=== PATIENT | male | born 1995 | race Caucasian/White ===

== ENCOUNTER 2020-12-21 08:34 | Emergency (ER) | payer SELFPAY ==
[2020-12-21 08:38] VITALS: BP 130/77; PULSE 78; TEMP 37; O2SAT 99
--- NOTE | 2020-12-21 09:00 | ED.GENADUL_ITS ---
Discharge Plan Disposition Patient Disposition: HOME Condition: Stable Discharge Details Clinical Impression: Neck pain Primary Care Provider: Rajan Medina ED Provider: Brenda Gallardo Home Meds and New Rx's Prescriptions: New cyclobenzaprine 10 mg tablet 10 mg PO TID PRN (Reason: muscle spasm) Qty: 9 RF: 0 prednisone 20 mg tablet 40 mg PO DAILY Qty: 8 RF: 0 Continued fluoxetine 40 mg capsule 40 mg PO DAILY Qty: 90 RF: 1 fluoxetine 20 mg capsule 20 mg PO DAILY Qty: 90 RF: 1 Discharge Instructions Instructions: Neck Pain (ED) Additional Instructions: Please return immediately to the emergency department if you develop any new or worsening symptoms, if your condition does not improve as expected, or if you become otherwise concerned. It is extremely important that you call soon as possible to make an appointment to be seen in follow-up for this visit by your primary care doctor. Referrals: Rajan Medina DO [Primary Care Provider] - Medical Decision Making Kyle Moreno is a 25 y/o man with history of depression, ADD who presented to emergency department with lower posterior neck pain that began when patient was trying to remove his some car seat. There was no impact or other trauma. On exam there is no cervical or thoracic spine tenderness to palpation, there is tenderness that reproduces pain in the left paraspinals at the level of C7/T1. No other paraspinal tenderness to palpation. Full range of motion of neck. Full range of motion of upper extremities, motor 5 out of 5 bilateral upper extremities. Concern for muscle spasm/strain. Exam/history at this time is not consistent with acute bony pathology, infectious etiology, acute coronary syndrome, acute aortic pathology, pulmonary embolism, other acute emergent life- threatening process. Plan for Lidoderm patch, p.o. steroids, p.o. cyclobenzaprine, outpatient follow-up. Patient is not driving and has a ride home, will administer first dose of steroids/cyclobenzaprine here. Imaging is not indicated at this time. I had a lengthy discussion with Patient regarding return to emergency department precautions, home care, safe use of cyclobenzaprine, and importance of outpatient follow-up. Pt verbalizes understanding of the plan and is amenable. Patient discharged to home with clear plan for outpatient follow-up. All questions were answered. Disposition decision was made weighing the risks and benefits of hospitalization versus outpatient treatment, the risk for further decompensation, and the patient's wishes. Medical Records Medical records reviewed: Yes I reviewed the patient's medical records. HPI General Mode of arrival: ambulatory . Date/Time Provider Initiated Documentation: 12/21/20 08:41 . Limitations to Documentation: no limitations . Information obtained by: patient, RN notes reviewed and old records reviewed . HPI Narrative: Kyle Moreno is a 25-year-old man without reported history of major medical problems who presents emergency department with chief complaint neck pain. Patient reports that yesterday he was removing his son car seat from the car when he pulled on the seat and fell pain at the lower aspect of his posterior neck. Patient reports that neck pain has persisted into today, unchanged. Patient reports the pain is worse with turning his head in either direction. He denies any other pain or any recent illness, no fever, cough, shortness of breath, vomiting, diarrhea, rash. He denies numbness, weakness. Patient reports that he has not had similar pain in the past. Has been able to go about his activities as usual, but states that he has to move slower to avoid spasm pain at the site of injury at the base of his neck and the back. He denies any radiation of the pain, able to range upper extremities without issue. He reports that pain is mild. Related Data Home Medications Medication Instructions Recorded Confirmed fluoxetine 20 mg capsule 20 mg PO DAILY #90 cap 07/09/20 12/21/20 fluoxetine 40 mg capsule 40 mg PO DAILY #90 cap 07/09/20 12/21/20 cyclobenzaprine 10 mg PO TID PRN #9 tab 12/21/20 prednisone 40 mg PO DAILY #8 tab 12/21/20 Previous Rx's Medication Instructions Recorded fluoxetine 20 mg capsule 20 mg PO DAILY #90 cap 07/09/20 fluoxetine 40 mg capsule 40 mg PO DAILY #90 cap 07/09/20 cyclobenzaprine 10 mg PO TID PRN #9 tab 12/21/20 prednisone 40 mg PO DAILY #8 tab 12/21/20 Allergies Allergy/AdvReac Type Severity Reaction Status Date / Time No Known Allergies Allergy Verified 12/21/20 08:45 General Stated Complaint: Nk/Back Pain ELISA: 4 Review of Systems Narrative: Constitutional: denies fevers Eyes: denies eye pain ENT: denies ear pain, dental pain, sore throat Cardiovascular: denies chest pain Respiratory: denies SOB, cough GI: denies abdominal pain, vomiting, diarrhea : denies flank pain MSK: denies back pain, arthralgias, myalgias, reports neck pain Skin: denies rash Neuro: denies headaches, numbness, weakness PFSH Medical History Family history of colon cancer Grandfather diagnosed in his 50s Impacted teeth with abnormal position Major depressive disorder, recurrent episode Tobacco use Family History (Updated 10/03/19 @ 13:38 by Kanika Albert RN) Mother No problems noted. Father No problems noted. Brother No problems noted. Sister No problems noted. Sister No problems noted. Sister No problems noted. Sister No problems noted. Sister No problems noted. Sister No problems noted. Sister No problems noted. Maternal Grandfather Colon cancer Maternal Grandmother , Breast Cancer Depression Son No problems noted. Paternal Grandmother Depression Other Family history of breast cancer Family history of malignant neoplasm of intestine Social History Smoking/Tobacco Use Status: Current every day Tobacco Type: cigarettes Tobacco: How many years used: 10 Quit status: considering quitting Second Hand Exposure: No Smoking risk assessment performed?: Yes Alcohol Intake: current Alcohol Intake frequency: 0-2 drinks per day Alcohol type: other Drug use: Daily Substance use type: marijuana Adopted: No Caregiver/Support person: No Foster care: No Household members: significant other and children Housing: house Number of Children: 1 Communication Needs: Corrective Lenses Education Level: high school Do you need help understanding health information?: Never current occupation: [employer] Pets and animals: Yes Pets and animals: cat(s), dog(s), horse(s) and farm animals Sexually active: Yes Do you think of yourself as: straight/heterosexual Current gender identity: male What is your relationship status?: living with partner How often do you talk on the phone with friends or family?: once per week How often do you get together with friends or relatives?: once per week How often do you attend adventist or mormonism services?: 1-3 times per year Do you belong to any clubs or organized social groups?: no Panel score (0-1 are the most socially isolated patients): 1 What type of physical activity do you participate in: none and weight lifting Duration: > 90 minutes/day Frequency: 5-6 times per week Radha/Advent: Unknown Special radha needs: No Agree to transfusion: Yes Seatbelt use: sometimes Helmet use: Yes 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 No overlying skin changes. No other cervical or thoracic paraspinal tenderness palpation Resp: normal work of breathing, speaking in full sentences Cardio: normal rate, normal rhythm Back: normal inspection, no rash Skin: warm, dry, normal color, no rash Neuro: alert, not altered, grossly non-focal, normal tone, motor 5 out of 5 bilateral upper extremities Ext: no edema, full range of motion of upper extremities bilaterally Psych: normal mood, normal affect, normal behavior Course Vital Signs Vital signs: Vital Signs Temperature 37.0 C 12/21/20 08:38 Pulse 78 12/21/20 08:38 Blood Pressure 130/77 12/21/20 08:38 Pulse Oximetry 99 12/21/20 08:38 Temperature 37.0 C 12/21/20 08:38 Temperature Source Temporal Artery Scan 12/21/20 08:38 Pulse 78 12/21/20 08:38 Respiratory Effort Non-Labored 12/21/20 08:43 Blood Pressure 130/77 12/21/20 08:38 Blood Pressure Position Sitting 12/21/20 08:38 Pulse Oximetry 99 12/21/20 08:38 Oxygen Delivery Method Room Air 12/21/20 08:38 Oxygen Flow Rate 0 12/21/20 08:38 Pain Level 4 12/21/20 08:38
[2020-12-21] MEDS: Lidocaine 5% Patch 1 PATCH TP (09:19)
[2020-12-21] MEDS: predniSONE 20 MG TAB 40 MG PO (09:19)
[2020-12-21] MEDS: Cyclobenzaprine 10 MG TAB PO (09:19)
== END 2020-12-21 09:25 | disposition home or self-care (01) ==
PROVIDERS: Emergency Provider Student in an Organized Health Care Education/Training Program; PCP Family Medicine
DX: M54.2 Cervicalgia (principal); X50.9XXA Other and unspecified overexertion or strenuous movements or postures, initial encounter
CPT/HCPCS: 99283; J7512

== ENCOUNTER 2024-12-24 06:37 | Emergency (ER) | payer SELFPAY ==
[2024-12-24] VITALS (20 sets, daily range): BP systolic 107–135; BP diastolic 72–84; PULSE 48–73; RESP 9–20; TEMP 36; O2SAT 93–100
--- NOTE | 2024-12-24 06:30 | RT.EKG_ITS ---
APPROVED REPORT Exam: Resting ECG Reason for Exam: chest pain Patient Location: E HR:66 bpm ECG Measurements Heart Rate 66 AXIS MT 142 P 71 QRSd 82 QRS 81 QT 385 T 57 QTc 403 Conclusion Sinus rhythm...normal P axis, V-rate 60- 99 ST elev, probable normal early repol pattern...ST elevation, age<55 No Occlusion MA
--- NOTE | 2024-12-24 07:00 | DI.RAD_ITS ---
Exam(s) XR CHEST 2V PA LATERAL EXAM: XR CHEST 2V PA LATERAL CLINICAL HISTORY: Chest pain TECHNIQUE: 2D digital imaging was performed. Two views. COMPARISON: No exams were available for comparison FINDINGS: HEART: Normal size. Aorta: Not dilated. PULMONARY VASCULATURE: Normal. MEDIASTINUM: Unremarkable. LUNGS: Clear. PLEURAL SPACE: No pleural effusion or pneumothorax. BONE:Unremarkable for age. SOFT TISSUES: Unremarkable. IMPRESSION: No acute abnormality. DATA REPOSITORY: RADIATION DOSE DELIVERED:
--- NOTE | 2024-12-24 07:03 | W.ED.GENAD ---
Discharge Plan Disposition Patient Disposition: Home Discharge Details Clinical Impression: Chest pain, unspecified Primary Care Provider: Rajan Medina ED Provider: Bennie Gonzalez Home Meds and New Rx's Prescriptions: Continued fluoxetine 40 mg capsule 80 mg PO DAILY Qty: 180 3RF Discharge Instructions Additional Instructions: You are seen in the emergency department for your chest pain. Your blood work showed no sign of any damage to your heart. Your kidneys are working well. As we discussed if your pain returns if you pass out or if you have any other concerns please return to the emergency department. Otherwise please follow-up with your primary care provider. Discharge Data Discharge Date/Time-TO BE ENTERED AT DEPARTURE: 12/24/24 08:42 HPI General Date/Time Provider Initiated Documentation: 12/24/24 06:59. HPI Narrative: MDM This is an overall very well-appearing afebrile and not tachycardic 29-year-old male with chest pain for which patient will undergo troponin testing in the setting of his nonischemic ECG. ECG showing sinus rhythm at a rate of 66. Narrow complex. Intervals within normal limits. ST segment elevation in lead V3 upsloping V4 V5 consistent with early repolarization. No ST segment depressions. No T wave inversions. No prior for comparison. No acute injury pattern. Patient has not had any fevers to suggest pneumonia however will obtain chest x-ray. Patient does drink alcohol so pancreatitis is on the differential though patient has no epigastric pain. Will order a lipase. No pain out of proportion to suggest necrotizing soft tissue infection. I considered PE however the patient is PERC negative so I did not send a D-dimer. No rash to chest to suggest zoster. Patient has not been vomiting to suggest increased risk for esophageal rupture. Patient is neither tachycardic nor hypotensive to my suspicion is low for tamponade. Furthermore he has no significant pericardial effusion on POCUS. HEART SCORE Chest pain Diagnostic Protocol: [- History/Physical/Gestalt: Moderately Suspicious (+1)] [- EKG: Nonspecific repolarization (+1)] [-AGE: less than 45 (0)] [- RISK FACTORS: 1 - 2 risk factors (+1)] [-TROPONIN: <= normal limit (0)] - TOTAL SCORE: 3 - Risk Factors: DM, current or recent smoker, HTN, HLD, family hx of CAD, obesity - INTERPRETATION: With a total score of 3 or less, risk of major cardiac event within six weeks 1.7%, likely lower with two negative troponins. [I explained to the patient that the risk of subsequent major cardiac event within 1 month is not 0, however risk predicted to be less than 2%. Patient verbalized understanding, accepts this risk and shared and the decision for discharge with PCP follow-up for further evaluation and management. They understand to return to the ED immediately with any worsening symptoms, new symptoms or other concerns.] 8:27 AM Reassuring initial troponin. Comprehensive metabolic panel reassuring with no acute electrolyte nor LFT abnormalities. Reassuring normal lipase. CBC lacks anemia thrombocytopenia and leukocytosis. Chest x-ray on my preliminary read showing no acute cardiopulmonary process. I advised patient of his reassuring evaluation in the ED. We discussed that he should return to the ED if you develop recurrent chest pain if he passed out or if you have any other concerns. He understood his return indications and was discharged with an empiric trial of expectant outpatient management. HPI This is a male with no significant past medical history presenting with chest pain. This morning, while en route to work, the patient experienced a sudden onset of symptoms including cold sweats, dizziness, chest pain, numbness in his arms, and stiffness in his fingers. The chest pain was described as tightness and pressure in the middle of his chest, which did not radiate into his arms. However, the numbness seemed to originate from his back and extend into his arms. The patient felt anxious during the episode. His symptoms were alleviated by deep breathing, drinking water, and reclining in the car. The patient reports no history of high cholesterol, diabetes, or high blood pressure. He reports no recent vomiting, abdominal pain, or unusual rashes on his chest. He has no history of blood clots in his legs or lungs, is not experiencing calf pain, and has not undergone any recent surgeries. He is not currently taking any hormone medications. The patient is currently experiencing symptoms of a mild cold but reports no other health issues. A similar episode occurred approximately 2 weeks ago, which was attributed to a general illness affecting his family at the time. On that occasion, he recovered after resting at home. Patient endorses alcohol and tobacco use. Exam General: Well-appearing in no acute distress speaking in complete sentences. Head: Normocephalic, atraumatic. Eye: Extraocular eye movements intact. No conjunctival injection. No scleral icterus. Ear, nose, mouth, throat: Grossly normal inspection. Normal voice, handling secretions normally. Neck: Trachea midline. Cardiovascular: Well-perfused distal extremities. Regular rate and rhythm Respiratory: Nonlabored respiration. Clear lungs bilaterally. Gastrointestinal: Nondistended abdomen. Soft. Nontender. No rebound. No guarding. Musculoskeletal: No edema. Moving all 4 extremities spontaneously. Skin: Normal for age and race, grossly normal temperature and turgor. No acute rash. Neurologic: Alert and appropriate, no apparent acute deficits. Psychiatric: Mood and manner are appropriate. Grooming and personal hygiene are appropriate. Related Data Home Medications ?Medication ?Instructions ?Recorded ?Confirmed fluoxetine 40 mg capsule 80 mg (2 x 40 mg) PO DAILY #180 03/28/24 12/24/24 caps Previous Rx's ?Medication ?Instructions ?Recorded fluoxetine 40 mg capsule 80 mg (2 x 40 mg) PO DAILY #180 03/28/24 caps Allergies Allergy/AdvReac Type Severity Reaction Status Date / Time No Known Allergies Allergy Verified 12/24/24 06:44 General Stated Complaint: Chest Pain ELISA: 3 Course Vital Signs Vital signs: Vital Signs Temperature 36.0 C L 12/24/24 06:40 Pulse 70 12/24/24 06:40 Respiratory Rate 15 12/24/24 06:40 Blood Pressure 135/83 12/24/24 06:40 Pulse Oximetry 98 12/24/24 06:40 Temperature 36.0 C L 12/24/24 06:40 Temperature Source Tympanic 12/24/24 06:40 Pulse 70 12/24/24 06:40 Respiratory Rate 15 12/24/24 06:45 Respiratory Effort Normal 12/24/24 06:45 Respiratory Depth Normal 12/24/24 06:45 Respiratory Pattern Normal 12/24/24 06:45 Blood Pressure 135/83 12/24/24 06:40 Blood Pressure Position Sitting 12/24/24 06:40 Pulse Oximetry 98 12/24/24 06:40 Oxygen Delivery Method Room Air 12/24/24 06:40 Oxygen Flow Rate 0 12/24/24 06:40 Pain Level 1 12/24/24 06:45 Comment 7/8 when the tightness was occurring 12/24/24 06:40 PFSH All Active Problems (Updated 12/24/24 @ 08:29 by Bennie Gonzalez MD) Chest pain, unspecified (Acute) Alcohol use disorder (Acute) Neck pain (Acute) Family history of colon cancer (Chronic) Grandfather diagnosed in his 50s Major depressive disorder, recurrent episode (Chronic) Tobacco use (Acute) Anxiety (Chronic) ADD (attention deficit disorder) (Acute) Medical History Family history of colon cancer Grandfather diagnosed in his 50s Impacted teeth with abnormal position Major depressive disorder, recurrent episode Tobacco use Family History (Updated 10/03/19 @ 13:38 by Kanika Albert RN) Mother No problems noted. Father No problems noted. Brother No problems noted. Sister No problems noted. Sister No problems noted. Sister No problems noted. Sister No problems noted. Sister No problems noted. Sister No problems noted. Sister No problems noted. Maternal Grandfather Colon cancer Maternal Grandmother , Breast Cancer Depression Son No problems noted. Paternal Grandmother Depression Other Family history of breast cancer Family history of malignant neoplasm of intestine Social History Smoking/Tobacco Use Status: Current every day Tobacco Type: cigarettes Tobacco: How many years used: 10 Quit status: considering quitting Second Hand Exposure: No Smoking risk assessment performed?: Yes Alcohol Intake: current Alcohol Intake frequency: 0-2 drinks per day Alcohol type: other Drug use: Daily Substance use type: marijuana Adopted: No Caregiver/Support person: No Foster care: No Household members: significant other and children Housing: house Number of Children: 1 Communication Needs: Corrective Lenses Education Level: high school Do you need help understanding health information?: Never current occupation: [employer] Pets and animals: Yes Pets and animals: cat(s), dog(s), horse(s) and farm animals Sexually active: Yes Do you think of yourself as: straight/heterosexual Current gender identity: male What is your relationship status?: living with partner How often do you talk on the phone with friends or family?: once per week How often do you get together with friends or relatives?: once per week How often do you attend sabianism or hinduism services?: 1-3 times per year Do you belong to any clubs or organized social groups?: no Panel score (0-1 are the most socially isolated patients): 1 What type of physical activity do you participate in: none and weight lifting Duration: > 90 minutes/day Frequency: 5-6 times per week Radha/Buddhist: Unknown Special radha needs: No Agree to transfusion: Yes Seatbelt use: sometimes Helmet use: Yes 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 Do you feel safe at home: Yes Do you feel safe in your relationship?: Yes PAWSS Have you Been Recently Intoxicated or Drunk Within the Last 30 days?: No Have you Ever Experienced Previous Episodes of Alcohol Withdrawal?: No Have you ever Experienced Withdrawal Seizures?: No Have you ever Experienced Delirium Tremens(DT)s?: No Have you ever undergone Alcohol Rehabilitation Treatment (i.e, inpt ot outpatient treatment programs)?: No Have you ever Experienced Blackouts?: No Have you ever Combined Alcohol with other Downers within the last 90 days?: No Have you ever Combined Alcohol with any other Substance of Abuse during the last 90 days?: No Result: 0 POCUS Exam (ED) Limited Cardiac Exam DATE OF EXAM: 12/24/24 TIME OF EXAM: 07:21 PROVIDER THAT PERFORMED THE STUDY: Bennie Gonzalez IS THIS A REPEAT EXAM DURING THIS ENCOUNTER: no REASON FOR EXAM: Chest pain VISUALIZED STRUCTURES: Four Chambers, Left ventricle and LVOT VIEW OBTAINED: Apical 4-Chamber, Parasternal long-axis and Subxiphoid PERTINENT FINDINGS/IMPRESSION: No pericardial effusion and No RV dilation DIFFERENTIAL DIAGNOSES: Aortic outflow track less than 4 cm, good squeeze, RV less than LV, no significant pericardial effusion. Exam complete
[2024-12-24 07:24] LABS: Abs Immature Grans 0.02 10^3/uL (0.0-0.06); HCT 42.9 % (40.0-50.0); HGB 14.1 g/dL (13.5-17.5); Immature Grans % 0.4 %; MCH 28.9 pg (27.0-33.0); MCHC 32.9 % (32.0-36.0); MCV 88 fL (80-95); MPV 10.5 fL (8.0-11.0); Platelet Count 241 10^3/uL (130-400); RBC 4.88 10^6/uL (4.36-5.78); RDW 13.1 % (11.8-14.1); RDW-SD 42.1 fL; WBC 5.07 10^3/uL (4.4-10.8)
[2024-12-24 08:15] LABS: ALT 17 U/L (16-63); AST 17 U/L (15-37); Albumin 3.9 g/dL (3.4-5.0); Alkaline Phosphatase 64 U/L (46-116); BUN 11 mg/dL (7-18); Bilirubin, Total 0.2 mg/dL (0.2-1.0); Calcium 9.3 mg/dL (8.5-10.1); Estimated GFR 103.19 (mL/min/1.73m2); Glucose 117 mg/dL (74-106); Lipase 35 U/L (<78); Potassium 4.0 mmol/L (3.5-5.1); Sodium 142 mmol/L (136-145); Total Protein 7.7 g/dL (6.4-8.2); Troponin I 4 ng/L (<or=76)
[2024-12-24 08:18] LABS: Troponin I 4 ng/L (<or=76)
[2024-12-24 08:31] LABS: Chloride 101 mmol/L (98-107)
--- NOTE | 2024-12-24 10:36 | DI.VRAD_ITS ---
PROCEDURE INFORMATION: Exam: XR Chest Exam date and time: 12/24/2024 7:38 AM Age: 29 years old Clinical indication: Other: Unspecified; Chest pain TECHNIQUE: Imaging protocol: Radiologic exam of the chest. Views: 2 views. COMPARISON: No relevant prior studies available. FINDINGS: Lungs: Unremarkable. No consolidation. Pleural spaces: Unremarkable. No pleural effusion. No pneumothorax. Heart/Mediastinum: Unremarkable. No cardiomegaly. Bones/joints: Unremarkable. IMPRESSION: No acute findings. Dictated and Authenticated by: Hugo Torres MD. Orderin Carlos Avery MD
[2024-12-25 13:56] LABS: Anion Gap 10.9 mmol/L (3-11)
[2024-12-25 13:57] LABS: CO2 30.1 mmol/L (21.0-32.0)
== END 2024-12-24 08:42 | disposition home or self-care (01) ==
PROVIDERS: Emergency Provider Emergency Medicine; PCP Family Medicine
DX: R07.9 Chest pain, unspecified (principal); F17.210 Nicotine dependence, cigarettes, uncomplicated
CPT/HCPCS: 80053; 83690; 93005; 93308; 99284; 71046; 84484; 85025; 93010